=== PATIENT | male | born 1945 | race Caucasian/White ===

== ENCOUNTER → 2018-07-14 | Outpatient (CLI) | payer OTHER | LOC: FIMAGING 12:44 | DX: Z13.820 Encounter for screening for osteoporosis (principal); Z85.820 Personal history of malignant melanoma of skin ==

== ENCOUNTER 2018-07-15 06:34 | Day surgery (SDC) | payer OTHER ==
[2018-07-15] MEDS ORDERED: DIAZEPAM 5 MG TAB PO ONE (06:39)
[2018-07-15] MEDS ORDERED: diphenhydrAMINE 25 MG CAP PO ONE ×2 (06:39→07:04)
[2018-07-15] MEDS ORDERED: NS 1,000 ML IV ONE (06:39)
[2018-07-15] MEDS ORDERED: ASPIRIN EC 325 MG TAB PO ONE ×2 (06:39→07:04)
[2018-07-15] MEDS ORDERED: FAMOTIDINE 20 MG TAB PO ONE (06:39)
[2018-07-15] MEDS ORDERED: FAMOTIDINE 20 MG TAB ONE (07:04)
[2018-07-15] MEDS ORDERED: DIAZEPAM 5 MG TAB ONE (07:05)
[2018-07-15 07:35] LABS: PLATELET COUNT 203 10^3/uL (150-400)
[2018-07-15] MEDS ORDERED: MIDAZOLAM 2 MG/2 ML VIAL ONE (07:39)
[2018-07-15] MEDS ORDERED: LIDOCAINE 1% 300 MG/30 ML SDV ONE (07:39)
[2018-07-15] MEDS ORDERED: IOPAMIDOL (ISOVUE-370) 150 ML BTL IV ONE (07:39)
[2018-07-15] MEDS ORDERED: fentaNYL 100 MCG/2 ML INJ ONE (07:39)
[2018-07-15] MEDS ORDERED: HEPARIN 10,000 UNIT/10 ML MDV (1,000 UNIT/ML) ONE (07:40)
[2018-07-15] MEDS ORDERED: VERAPAMIL 5 MG/2 ML VIAL ONE (07:40)
[2018-07-15 07:43] LABS: INR 1.06 (0.83-1.16)
--- NOTE | 2018-07-15 08:26 | PDPROPOC ---
Sedation Plan of Care Sedation Plan of Care: vital signs stable, mental status noted, patient educated of risks, benefits, alternatives, patient can tolerate sedation ASA Classification: ASA 2 Planned drugs: fentanyl, midazolam Mallampati Score: Class 1 Mallampati Reference Image: Patient passed 3-3-2 rule?: Yes
--- NOTE | 2018-07-15 08:26 | PDHPUP ---
History & Physical Update H&P update statement: This history and physical update is based on an assessment of the patient which was completed after admission or registration (within 24 hours), but prior to the surgery/procedure. H&P update: H&P reviewed & patient examined, no change in patient's condition since H&P completed
[2018-07-15] MEDS ORDERED: NITROGLYCERIN 0.4 MG BTL SL PRN (09:10)
--- NOTE | 2018-07-15 09:13 | PDDXCAT ---
Diagnostic Cath Note - . Date: 07/15/18 [employer]: Arthur High-risk criteria on non-invasive testing: stress-induced moderate-size multiple perfusion defects - Procedure Access: right wrist Procedure: left heart catheterization, coronary angiography, left ventriculogram - Materials Left Heart Cath size: 5F Left Heart Cath materials: pigtail, other (TIG) - Findings-Left Heart Catheterization LM: normal LAD: normal LCX: dominant:normal RCA: nondominant: normal EDP: 13mmHg LVEF: 72% Complications: none Estimated blood loss: <50ml Closure method: TR Band Assessment: Normal Cors with normal LV function and filling pressures. Plan: Continued blood pressure control.
--- NOTE | 2018-07-16 10:01 | CPEKG ---
Test Reason : OPEN Blood Pressure : / mmHG Vent. Rate : 080 BPM Atrial Rate : 079 BPM P-R Int : 224 ms QRS Dur : 097 ms QT Int : 421 ms P-R-T Axes : 062 026 145 degrees QTc Int : 486 ms Sinus rhythm Prolonged NV interval Abnormal R-wave progression, early transition Repol abnrm, prob ischemia, anterolateral lds Confirmed by Jean Worthy ([id number] on 07/16/2018 10:00:54 AM Referred By: Confirmed By:Jean Worthy
== END 2018-07-15 12:23 | disposition home or self-care (01) ==
LOC: FCATH 06:34
PROVIDERS: ATTEND Internal Medicine Interventional Cardiology
DX: R94.39 Abnormal result of other cardiovascular function study (principal); R94.31 Abnormal electrocardiogram [ECG] [EKG]; I44.0 Atrioventricular block, first degree; N18.9 Chronic kidney disease, unspecified; I12.9 Hypertensive chronic kidney disease with stage 1 through stage 4 chronic kidney disease, or unspecified chronic kidney disease; N40.0 Benign prostatic hyperplasia without lower urinary tract symptoms
CPT/HCPCS: C1769; J1644; J2250; J3010; Q9967